=== PATIENT | female | born 1995 | race Caucasian/White ===

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

== ENCOUNTER → 2017-01-17 | Outpatient (CLI) | payer OTHER | END | disposition home or self-care (01) | LOC: ORTHO 03:17 | DX: S82.002D Unspecified fracture of left patella, subsequent encounter for closed fracture with routine healing (principal); Z47.1 Aftercare following joint replacement surgery; X58.XXXD Exposure to other specified factors, subsequent encounter ==

== ENCOUNTER → 2017-02-16 | Outpatient (CLI) | payer OTHER | END | disposition home or self-care (01) | LOC: ORTHO 01:59 | DX: S82.042D Displaced comminuted fracture of left patella, subsequent encounter for closed fracture with routine healing (principal); X58.XXXD Exposure to other specified factors, subsequent encounter ==

== ENCOUNTER → 2017-03-21 | Outpatient (CLI) | payer OTHER | END | disposition home or self-care (01) | LOC: ORTHO 01:34 | DX: S82.002D Unspecified fracture of left patella, subsequent encounter for closed fracture with routine healing (principal); X58.XXXD Exposure to other specified factors, subsequent encounter ==

== ENCOUNTER → 2017-04-18 | Outpatient (CLI) | payer OTHER | LOC: ORTHO 00:58 | DX: Z53.9 Procedure and treatment not carried out, unspecified reason (principal) ==

== ENCOUNTER → 2017-05-15 | Outpatient (CLI) | payer OTHER | END | disposition home or self-care (01) | LOC: ORTHO 03:05 | DX: S82.042D Displaced comminuted fracture of left patella, subsequent encounter for closed fracture with routine healing (principal); X58.XXXD Exposure to other specified factors, subsequent encounter ==

== ENCOUNTER → 2017-12-13 | Outpatient (CLI) | payer OTHER | END | disposition home or self-care (01) | LOC: ORTHO 00:33 | DX: Z47.89 Encounter for other orthopedic aftercare (principal); S82.042D Displaced comminuted fracture of left patella, subsequent encounter for closed fracture with routine healing; X58.XXXD Exposure to other specified factors, subsequent encounter ==

== ENCOUNTER → 2018-01-03 | Outpatient (CLI) | payer OTHER ==
[2018-01-03 11:27] LABS: BASO % 0.4 % (0.0-1.0); EOS # 0.1 10*3/uL (0.0-0.4); EOS % 1.1 % (1.0-4.0); HEMATOCRIT 43.6 % (37.0-47.0); HEMOGLOBIN 14.2 g/dl (12.0-16.0); LYMPH # 1.6 10*3/uL (1.3-4.4); LYMPH % 20.1 % (27.0-41.0); MEAN CELL VOLUME 91.4 fl (81.0-99.0); MEAN CORPUSCULAR HGB 29.8 pg (27.0-31.0); MEAN CORPUSCULAR HGB CONC 32.6 g/dl (33.0-37.0); MEAN PLATELET VOLUME 11.2 fl (9.6-12.3); MONO # 0.7 10*3/uL (0.1-1.0); MONO % 8.4 % (3.0-9.0); NEUT # 5.5 10*3/uL (2.3-7.9); NEUT % 69.7 % (47.0-73.0); PLATELET COUNT AUTOMATED 166 10*3/uL (130-400); RED BLOOD COUNT 4.77 10*6/uL (4.10-5.10); RED CELL DISTRI WIDTH 12.4 % (0-14.5); WHITE BLOOD COUNT 7.8 10*3/uL (4.8-10.8)
[2018-01-03 11:51] LABS: BUN 16 mg/dl (7-24); CHLORIDE 105 mmol/L (98-107); CREATININE 0.67 mg/dL (0.55-1.02); SODIUM 140 mmol/L (136-145)
== END | disposition home or self-care (01) ==
LOC: LAB 10:19
PROVIDERS: Orthopaedic Surgery
DX: T84.039A Mechanical loosening of unspecified internal prosthetic joint, initial encounter (principal)

== ENCOUNTER → 2018-01-10 | Day surgery (SDC) | payer OTHER ==
[~2018-01-10] VITALS: Ht 162.5 cm; Wt 65.8 kg
--- NOTE | ~2018-01-10 | O ---
[place], [place] OPERATIVE NOTE NAME: BENJA SUAZO UNIT #: [id number] ROOM: DOCTOR: LI NAQVI DO BIRTHDATE: [birth year] DOS: 01/10/2018 PREPROCEDURE DIAGNOSIS: Left patella painful retained hardware. POSTPROCEDURE DIAGNOSIS: Left patella painful retained hardware. PROCEDURE: Left patellar removal of retained hardware. SURGEON: Li Naqvi DO. FIRST ASSISTANTS: Serenity and Trevor. ANESTHESIA: AstridCASSY olson, general. INDICATIONS: The patient is a 22-year-old female with a history of a left patella fracture on 10/17/2016. The patient underwent a tension band wire fixation on 10/26/2016. The patient has made a significant recovery and the patella has complete fusion. She complains of discomfort at the K-wire site and the risks and benefits of removal were explained to her and her grandmother preoperatively. Preoperative labs and x-rays were obtained. DESCRIPTION OF PROCEDURE: The left knee was marked in the holding area. The patient was brought to the operative suite. General anesthetic with endotracheal intubation was performed. The patient received clindamycin 600 mg IV piggyback. The left lower extremity was prepped and draped in the usual orthopedic fashion. The tourniquet was placed at the left upper thigh. The extremity was exsanguinated. The tourniquet was inflated to 300 mmHg. The timeout was performed. The incision was made along the previous midline patellar incision. This was marked with a marking pen and made sharply with scalpel. Subcutaneous tissue was spread down to the level of the patellar bursa and periosteum. The paratenon was divided. The patellar tendon was partially divided longitudinally along with its fibers. The K-wires from the cerclage wire were identified under C-arm guidance and removed manually with a needle fleet driver. There was an additional K-wire stabilizing the fracture site. This was removed as well. The single cerclage wire was cut distally and removed in 2 different pieces. The removal of the K wires and cerclage wire was evaluated under C-arm guidance and found to be complete. The area was copiously irrigated with normal saline. The wound was closed in a layered fashion with 0 Vicryl for the patellar tendon followed by 2-0 Vicryl for the paratenon and 3-0 Vicryl in a horizontal mattress suture fashion at the level of the skin. The area was injected with Marcaine 0.5% plain. Xeroform, 4 x 4s, ABD, cast padding and Boo bandage completed the dressing. The tourniquet was released. The anesthetic was reversed. The patient was extubated and taken to recovery room in satisfactory condition. COUNTS: Sponge and needle count correct. ESTIMATED BLOOD LOSS: 5 mL. SPECIMENS: Three K-wires and cerclage wire. [place], [place] OPERATIVE NOTE NAME: BENJA SUAZO UNIT #: [id number] ROOM: DOCTOR: LI NAQVI DO BIRTHDATE: [birth year] DRAINS: None. PACKING: None. COMPLICATIONS: None. FINDINGS: Healed patellar fracture. LI NAQVI DO CM:OPRECORD:OPERATIVE NOTE [id number] LI NAQVI DO 01/10/18 1755 interface
[2018-01-10 07:45] VITALS: BP 116/62
[2018-01-10 09:53] VITALS: BP 97/41
[2018-01-10 10:08] VITALS: BP 108/82
[2018-01-10 10:23] VITALS: BP 108/84
[2018-01-10 10:38] VITALS: BP 122/78
[2018-01-10 10:53] VITALS: BP 110/58
== END | disposition home or self-care (01) ==
LOC: SDC 01-03 10:15
DX: Z47.2 Encounter for removal of internal fixation device (principal); Z87.81 Personal history of (healed) traumatic fracture; F17.210 Nicotine dependence, cigarettes, uncomplicated; Z88.0 Allergy status to penicillin; Z98.890 Other specified postprocedural states; Z79.899 Other long term (current) drug therapy

== ENCOUNTER → 2018-08-28 | Outpatient (CLI) | payer OTHER | END | disposition home or self-care (01) | LOC: US 06:30 | DX: R10.9 Unspecified abdominal pain (principal) ==

== ENCOUNTER 2019-11-16 14:31 | Emergency (ER) | payer SELFPAY ==
[~2019-11-16] VITALS: Ht 162.5 cm; Wt 72.6 kg
[2019-11-16 14:42] VITALS: BP 110/72
[2019-11-16] MEDS ORDERED: METHOCARBAMOL500 M1 PO (16:48)
[2019-11-16] MEDS ORDERED: MEDROL DOSEPAK4 MG PO (16:48)
[2019-11-16] MEDS ORDERED: NAPROSYN500 MG PO (16:48)
== END 2019-11-16 16:58 | disposition home or self-care (01) ==
LOC: ED 14:31
DX: T14.8XXA Other injury of unspecified body region, initial encounter (principal); Z88.0 Allergy status to penicillin; Z88.8 Allergy status to other drugs, medicaments and biological substances; X58.XXXA Exposure to other specified factors, initial encounter; Y93.89 Activity, other specified; Y92.89 Other specified places as the place of occurrence of the external cause; Y99.8 Other external cause status

== ENCOUNTER → 2021-02-28 | Outpatient (CLI) | payer OTHER ==
[~2021-02-28] MED LIST changes: +MEDROL DOSEPAK4 MG PO; +METHOCARBAMOL500 M1 PO; +NAPROSYN500 MG PO
== END | disposition home or self-care (01) ==
LOC: LAB 13:19
PROVIDERS: ATTEND Internal Medicine
DX: J02.9 Acute pharyngitis, unspecified (principal)